=== PATIENT | female | born 1995 | race Caucasian/White ===

== ENCOUNTER 2016-12-10 12:47 | Observation (INO) | payer BC ==
[2016-12-10] VITALS (8 sets, daily range): BP systolic 91–101; BP diastolic 43–60
[~2016-12-10] VITALS: Ht 170.2 cm; Wt 57.6 kg
--- NOTE | 2016-12-10 13:23 | Emergency Room Report ---
History of Present Illness General Chief Complaint: Abdominal Pain Source: Patient Present Illness HPI The patient is a 21-year-old female with a history of ovarian cysts presenting for mid to lower abdominal and right lower quadrant pain which began yesterday. The patient states that she was experiencing a 10 out of 10 sharp pain to those areas which has decreased today. Pain is now described as a 5/10 dull ache. The pain is worse with touch. The patient has also admitted to a subjective low grade fever for the past week. 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 The patient was then told to present to the emergency department for further evaluation. The patient denies any other symptoms including nausea, vomiting, chills, diarrhea, constipation, dysuria, vaginal discharge Allergies: Coded Allergies: LIDOCAINE (Verified Allergy, Unknown, 12/10/16) Patient History Past Medical History: see triage record Pertinent Family History: none Last Menstrual Period: 12/04/16 Now: No - states she is on control Reviewed Nursing Documentation: PMH: Agreed, PSxH: Agreed Nursing Documentation-PMH Past Medical History: No History, Except For Review of Systems All Other Systems: negative except mentioned in HPI Physical Exam Vital Signs Date Time Temp Pulse Resp B/P Pulse Ox O2 Delivery O2 Flow Rate FiO2 12/10/16 12:53 99.1 102 16 108/65 99 Room Air Sp02 EP Interpretation: reviewed, normal General Appearance: no apparent distress, alert, GCS 15, non-toxic Head: normocephalic, atraumatic Respiratory: chest non-tender, lungs clear, normal breath sounds, speaking full sentences Cardiovascular #1: regular rate, rhythm, no edema Gastrointestinal: normal inspection, normal bowel sounds, no mass, non- distended, no guarding, no hernia, tenderness - Suprapubic and RLQ Genitourinary: normal inspection, no CVA tenderness Musculoskeletal: back normal, gait/station normal, normal range of motion, non- tender Neurologic: alert, oriented x3, responsive, motor strength/tone normal, sensory intact, speech normal Psychiatric: judgement/insight normal, memory normal, mood/affect normal, no suicidal/homicidal ideation Skin: normal color, no rash, warm/dry, well hydrated Medical Decision Making PA Attestation Dr. Sanchez is my supervising physician. Patient management was discussed with my supervising physician Diagnostic Impression: Primary Impression: Acute appendicitis ER Course The patient is a 21-year-old female presenting with lower abdominal pain and low -grade fever Differential diagnoses considered include but not limited to appendicitis, , UTI, PID Physical exam: Vitals are within normal limits. No apparent distress Abdomen is soft. Normal bowel sounds. No distention. There is tenderness to palpation over the suprapubic region and right lower quadrant. Otherwise exam is unremarkable CBC and CMP unremarkable. No leukocytosis. Urinalysis is consistent with UTI CT of the abdomen and pelvis shows findings consistent with appendicitis Dr. Flores was consulted in the emergency department and case discussed with SP. The patient will be admitted to Dr. Flores Presurgical labs are ordered. The patient is started on IV cefoxitin. Patient placed on n.p.o. The patient is informed of these results and will be admitted in stable condition Laboratory Tests Test 12/10/16 13:40 12/10/16 13:58 White Blood Count 10.0 K/UL (4.8-10.8) Red Blood Count 3.81 M/UL (4.20-5.40) L Hemoglobin 13.2 G/DL (12.0-16.0) Hematocrit 39.1 % (37.0-47.0) Mean Corpuscular Volume 103 FL (80-99) H Mean Corpuscular Hemoglobin 34.7 PG (27.0-31.0) H Mean Corpuscular Hemoglobin Concent 33.8 G/DL (32.0-36.0) Red Cell Distribution Width 12.3 % (11.6-14.8) Platelet Count 177 K/UL (150-450) Mean Platelet Volume 9.8 FL (6.5-10.1) Neutrophils (%) (Auto) 72.9 % (45.0-75.0) Lymphocytes (%) (Auto) 19.1 % (20.0-45.0) L Monocytes (%) (Auto) 7.6 % (1.0-10.0) Eosinophils (%) (Auto) 0.1 % (0.0-3.0) Basophils (%) (Auto) 0.4 % (0.0-2.0) Sodium Level 141 mEQ/L (135-145) Potassium Level 4.3 mEQ/L (3.4-4.9) Chloride Level 102 mEQ/L (98-107) Carbon Dioxide Level 23 mEQ/L (20-30) Anion Gap 16 (5-15) H Blood Urea Nitrogen 8 mg/dL (7-23) Creatinine 0.7 mg/dL (0.5-0.9) Estimate Glomerular Filtration Rate > 60 mL/min (>60) Glucose Level 97 mg/dL (74-106) Calcium Level 10.0 mg/dL (8.6-10.2) Total Bilirubin 0.4 mg/dL (0.0-1.2) Aspartate Amino Transferase (AST) 18 U/L (5-40) Alanine Aminotransferase (ALT) 11 U/L (3-33) Alkaline Phosphatase 66 U/L (35-104) Total Protein 7.2 g/dL (6.6-8.7) Albumin 4.6 g/dL (3.5-5.2) Globulin 2.6 g/dL Albumin/Globulin Ratio 1.7 (1.0-2.7) Lipase 24 U/L (< 60) Urine Color Yellow Urine Appearance Slightly cloudy Urine pH 8 (4.5-8.0) Urine Specific [place] 1.010 (1.005-1.035) Urine Protein 1+ (NEGATIVE) H Urine Glucose (UA) Negative (NEGATIVE) Urine Ketones 2+ (NEGATIVE) H Urine Occult Blood 4+ (NEGATIVE) H Urine Nitrite Negative (NEGATIVE) Urine Bilirubin Negative (NEGATIVE) Urine Urobilinogen Normal MG/DL (0.0-1.0) Urine Leukocyte Esterase 3+ (NEGATIVE) H Urine RBC 2-4 /HPF (0 - 2) H Urine WBC 10-15 /HPF (0 - 2) H Urine Squamous Epithelial Cells Few /LPF (NONE/OCC) Urine Bacteria Moderate /HPF (NONE) H Urine HCG, Qualitative Negative Lab Results Impression CBC and CMP unremarkable. No leukocytosis. Urinalysis is consistent with UTI CT/MRI/US Diagnostic Results CT/MRI/US Diagnostic Results : Imaging Test Ordered: CT abd/pelvis Impression Consistent with appendicitis Last Vital Signs Date Time Temp Pulse Resp B/P Pulse Ox O2 Delivery O2 Flow Rate FiO2 12/10/16 12:53 99.1 102 16 108/65 99 Room Air Status: improved Disposition: ADMITTED INPATIENT Condition: Stable MERVAT BENTLEY Dec 10, 2016 13:23
[2016-12-10 13:54] LABS: BASOPHILS % (AUTO) 0.4 % (0.0-2.0); EOSINOPHILS % (AUTO) 0.1 % (0.0-3.0); LYMPHOCYTES % (AUTO) 19.1 % (20.0-45.0); MEAN CORPUSCULAR HEMOGLOBIN 34.7 PG (27.0-31.0); MEAN CORPUSCULAR HGB CONC 33.8 G/DL (32.0-36.0); MEAN CORPUSCULAR VOLUME 103 FL (80-99); MEAN PLATELET VOLUME 9.8 FL (6.5-10.1); MONOCYTES % (AUTO) 7.6 % (1.0-10.0); NEUTROPHILS % (AUTO) 72.9 % (45.0-75.0); PLATELET COUNT 177 K/UL (150-450); RED BLOOD COUNT 3.81 M/UL (4.20-5.40); RED CELL DISTRIBUTION WIDTH 12.3 % (11.6-14.8)
[2016-12-10 14:21] LABS: ALANINE AMINOTRANSFERASE 11 U/L (3-33); ALBUMIN/GLOBULIN RATIO 1.7 (1.0-2.7); ANION GAP 16 (5-15); ASPARTATE AMINO TRANSFERASE 18 U/L (5-40); CARBON DIOXIDE 23 mEQ/L (20-30); CHLORIDE 102 mEQ/L (98-107); CREATININE 0.7 mg/dL (0.5-0.9); GLOMERULAR FILTRATION RATE > 60 mL/min (>60); HEMOLYSIS 5; LIPASE 24 U/L (< 60); POTASSIUM 4.3 mEQ/L (3.4-4.9); SODIUM 141 mEQ/L (135-145); TOTAL PROTEIN 7.2 g/dL (6.6-8.7)
[2016-12-10 14:38] LABS: APPEARANCE,URINE SLIGHTLY CLOUDY; KETONES,URINE 2+ (NEGATIVE); LEUKOCYTE ESTERASE ,URINE 3+ (NEGATIVE); NITRITE,URINE NEGATIVE (NEGATIVE); PH,URINE 8 (4.5-8.0); PROTEIN,URINE 1+ (NEGATIVE); UROBILINOGEN,URINE NORMAL MG/DL (0.0-1.0)
[2016-12-10 14:48] LABS: BACTERIA,URINE MODERATE /HPF; SQUAMOUS EPITHELIAL CELL,UR FEW /LPF (NONE/OCC)
[2016-12-10] MEDS ORDERED: cefOXitin Sod 1 GM in D5W 55 ML IVPB STA (16:21)
--- NOTE | 2016-12-10 16:25 | Diagnostic Imaging Report ---
Clinical Indication: Abdominal distention, lower abdominal pain Technique: No oral contrast utilized, per emergency room physician request IV administration nonionic contrast. Venous phase spiral acquisition obtained through the abdomen and pelvis. Multiplanar reconstructions were generated. Total dose length product 648 mGycm. CTDIvol(s) 13 mGy Comparison: Findings: The appendix is enlarged, measures 10 mm in diameter there is very slight increased attenuation of the adjacent periappendiceal fat. No abnormal fluid collections are evident. No extraluminal gas is evident. Distal esophagus, stomach, duodenum are unremarkable. No small bowel distention or small bowel wall thickening. No evidence of diverticulosis or diverticulitis. There is a small amount of free pelvic fluid present. No retroperitoneal or mesenteric mass or adenopathy. No pelvic mass or adenopathy. The liver, gallbladder, bile ducts, pancreas, spleen, adrenals, kidneys are unremarkable. The included lung bases are clear. The bones are unremarkable. Impression: Positive for uncomplicated acute appendicitis Small amount free pelvic fluid, possibly related to the above but more likely physiologic The CT scanner at [facility] is accredited by the [employer] and the scans are performed using protocols designed to limit radiation exposure to as low as reasonably achievable to attain images of sufficient resolution adequate for diagnostic evaluation.
[2016-12-10] MEDS ORDERED: cefOXitin 1gm Inj ONE (16:44)
--- NOTE | 2016-12-10 19:59 | Consultation ---
History of Present Illness General Date patient seen: Dec 10, 2016 Chief Complaint: Abdominal Pain Reason for Consultation: acute appendicitis Present Illness HPI 21 F presents to ED complaining of lower abdominal pain x 1-2 days. As per patient, she has been feeling unwell for a few days now with a low grade fever but two nights ago began to note some lower abdominal pain. Last night pain became significantly worse so she went to see her OB this afternoon. Has history of ruptured ovarian cysts but states that she felt as if this episode might be different as the pain was not consistent to prior episodes. Pain described as cramping lower abdominal pain that was infraumbilical at first but now an be in right or left lower quadrant. when seen in her OB's office pain was mostly noted to be RLQ. Patient denies associated nausea or emesis. CT A/ P obtained in ED demonstrated enlarged appendix 10-11mm with thickened wall and free abdominal fluid consistent with early acute appendicitis. Surgery called to evaluate. Allergies: Coded Allergies: LIDOCAINE (Verified Allergy, Unknown, 12/10/16) Patient History History Provided By: Patient Healthcare decision maker Resuscitation status Advanced Directive on File Past Medical/Surgical History Past Medical/Surgical History: (1) Acute appendicitis (2) Ovarian cyst Review of Systems Constitutional: Denies: chills, fever, malaise, no symptoms, other, see HPI, sweats, weakness Eye: Denies: acuity changes, blurred vision, discharge, double vision, eye pain , no symptoms, nose congestion, nose pain, other, see HPI, tearing ENT: Denies: ear discharge, ear pain, hearing loss, mouth pain, nasal discharge , no symptoms, nose congestion, nose pain, other, see HPI, throat pain, throat swelling Respiratory: Denies: LIAO, cough, no symptoms, orthopnea, other, see HPI, shortness of breath, sputum, stridor, wheezing Cardiovascular: Denies: PND, chest pain, edema, no symptoms, other, palpitations, see HPI, syncope Gastrointestinal: Reports: abdominal pain Genitourinary: Denies: discharge, dysuria, frequency, hematuria, incontinence, no symptoms, other, pain, retention, see HPI, urgency, vag bleed/dc Musculoskeletal: Denies: back pain, gout, joint pain, joint swelling, muscle pain, muscle stiffness, no symptoms, other, see HPI Skin: Denies: change in color, change in hair/nails, dryness, lesions, no symptoms, other, rash, see HPI Psychiatric: Denies: HI, SI, anxiety, depressed feelings, emotional problems, hallucinations, no symptoms, other, prior hx, see HPI Neurological: Denies: dizziness, focal weakness, headache, no symptoms, numbness, other, paresthesia, see HPI, seizure, syncope, tingling, tremors Endocrine: Denies: excessive sweating, flushing, increased thirst, increased urine, intolerance to temperature, no symptoms, other, see HPI, unexplained weight loss Hematologic/Lymphatic: Denies: anemia, blood clots, diathesis, easy bleeding, easy bruising, no symptoms, other, see HPI, swollen glands All Other Systems: negative except mentioned in HPI Physical Exam General Appearance: WD/WN, no apparent distress, alert Lines, tubes and drains: peripheral HEENT: normocephalic, atraumatic Neck: non-tender, supple Respiratory/Chest: normal breath sounds, no respiratory distress, no accessory muscle use Cardiovascular/Chest: normal peripheral pulses, normal rate, regular rhythm Abdomen: normal bowel sounds, soft, other - tender in infraumbilcal area, RLQ, and LLQ. guarding with RLQ palpation. rebound noted. 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 normal, no motor/sensory deficits Last 24 Hour Vital Signs Date Time Temp Pulse Resp B/P Pulse Ox O2 Delivery O2 Flow Rate FiO2 12/10/16 15:24 98.5 85 16 100/54 100 Room Air 12/10/16 14:42 98.5 12/10/16 12:53 99.1 102 16 108/65 99 Room Air Laboratory Tests Test 12/10/16 13:40 12/10/16 13:58 White Blood Count 10.0 K/UL (4.8-10.8) Red Blood Count 3.81 M/UL (4.20-5.40) L Hemoglobin 13.2 G/DL (12.0-16.0) Hematocrit 39.1 % (37.0-47.0) Mean Corpuscular Volume 103 FL (80-99) H Mean Corpuscular Hemoglobin 34.7 PG (27.0-31.0) H Mean Corpuscular Hemoglobin Concent 33.8 G/DL (32.0-36.0) Red Cell Distribution Width 12.3 % (11.6-14.8) Platelet Count 177 K/UL (150-450) Mean Platelet Volume 9.8 FL (6.5-10.1) Neutrophils (%) (Auto) 72.9 % (45.0-75.0) Lymphocytes (%) (Auto) 19.1 % (20.0-45.0) L Monocytes (%) (Auto) 7.6 % (1.0-10.0) Eosinophils (%) (Auto) 0.1 % (0.0-3.0) Basophils (%) (Auto) 0.4 % (0.0-2.0) Sodium Level 141 mEQ/L (135-145) Potassium Level 4.3 mEQ/L (3.4-4.9) Chloride Level 102 mEQ/L (98-107) Carbon Dioxide Level 23 mEQ/L (20-30) Anion Gap 16 (5-15) H Blood Urea Nitrogen 8 mg/dL (7-23) Creatinine 0.7 mg/dL (0.5-0.9) Estimat Glomerular Filtration Rate > 60 mL/min (>60) Glucose Level 97 mg/dL (74-106) Calcium Level 10.0 mg/dL (8.6-10.2) Total Bilirubin 0.4 mg/dL (0.0-1.2) Aspartate Amino Transf (AST/SGOT) 18 U/L (5-40) Alanine Aminotransferase (ALT/SGPT) 11 U/L (3-33) Alkaline Phosphatase 66 U/L (35-104) Total Protein 7.2 g/dL (6.6-8.7) Albumin 4.6 g/dL (3.5-5.2) Globulin 2.6 g/dL Albumin/Globulin Ratio 1.7 (1.0-2.7) Lipase 24 U/L (< 60) Urine Color Yellow Urine Appearance Slightly cloudy Urine pH 8 (4.5-8.0) Urine Specific [place] 1.010 (1.005-1.035) Urine Protein 1+ (NEGATIVE) H Urine Glucose (UA) Negative (NEGATIVE) Urine Ketones 2+ (NEGATIVE) H Urine Occult Blood 4+ (NEGATIVE) H Urine Nitrite Negative (NEGATIVE) Urine Bilirubin Negative (NEGATIVE) Urine Urobilinogen Normal MG/DL (0.0-1.0) Urine Leukocyte Esterase 3+ (NEGATIVE) H Urine RBC 2-4 /HPF (0 - 2) H Urine WBC 10-15 /HPF (0 - 2) H Urine Squamous Epithelial Cells Few /LPF (NONE/OCC) Urine Bacteria Moderate /HPF (NONE) H Urine HCG, Qualitative Negative Height (Feet): 5 Height (Inches): 7.00 Weight (Pounds): 127 Assessment/Plan Problem List: (1) Acute appendicitis ICD Codes: K35.80 - Unspecified acute appendicitis SNOMED: [id number] Status: stable Assessment/Plan 21 F with acute appendicitis. Low grade fever of 99.1, normal wbc, exam with lower abdominal pain and mild guarding. CT Scan reviewed with radiologist and consistent with early acute appendicitis. I explained the above findings to the patient. I explained that it seems to be early acute appendicitis but cannot be certain given atypical exam and normal wbc. Given appearance of appendix on CT with thickened wall, diameter of 10-11mm and free fluid it is likely she has early acute appendicitis. Offered to monitor without abx to see if she improves or declares herself or to proceed with diagnostic laparoscopy and appendectomy. After explaining the risks, benefits, and alternatives in detail with the patient, she expressed desire to proceed with surgery. NPO IV fluids IV Abx To OR tonight for lap vs open appendectomy. consent in chart Nima Morales Dec 10, 2016 19:59
--- NOTE | 2016-12-10 21:00 | Anethesia Preoperative Eval ---
Anesthesia Pre-op PMH/ROS General Date of Evaluation: Dec 10, 2016 Anesthesiologist: Yogi ASA Score: ASA 2 Mallampati Score Class I : Soft palate, uvula, fauces, pillars visible Class II: Soft palate, uvula, fauces visible Class III: Soft palate, base of uvula visible Class IV: Only hard plate visible Mallampati Classification: Class I Surgeon: Liz Diagnosis: Acute appendicitis Surgical Procedure: Laparoscopic appendectomy Anesthesia History: none Family History: no anesthesia problems Allergies: Coded Allergies: LIDOCAINE (Verified Allergy, Unknown, 12/10/16) Medications: see eMAR Past Medical History Cardiovascular: Denies: CAD, HTN, RI, arrhythmia, other, valve dz Pulmonary: Denies: COPD, HIEU, asthma, other Gastrointestinal/Genitourinary: Reports: other - ovarian cysts, Denies: CRI, ESRD, GERD Neurologic/Psychiatric: Denies: CVA, TIA, dementia, depression/anxiety, other Endocrine: Denies: DM, hypothyroidism, other, steroids HEENT: Denies: LOWER ELWHA (L), LOWER ELWHA (R), cataract (L), cataract (R), glaucoma, other Hematology/Immune: Denies: DVT, anemia, bleeding disorder, other Musculoskeletal/Integumentary: Denies: DDD, DJD, OA, RA, edema, other PSxH Narrative: T&A Anesthesia Pre-op Phys. Exam Physician Exam Last Vital Signs Date Time Temp Pulse Resp B/P Pulse Ox O2 Delivery O2 Flow Rate FiO2 12/10/16 15:24 98.5 85 16 100/54 100 Room Air Constitutional: NAD Cardiovascular: RRR Respiratory: CTA Airway Exam Mallampati Score: Class I MO: full ROM: full Teeth: intact Anesthesia Pre-op A/P Labs Hematology Test 12/10/16 13:40 White Blood Count 10.0 K/UL (4.8-10.8) Red Blood Count 3.81 M/UL (4.20-5.40) L Hemoglobin 13.2 G/DL (12.0-16.0) Hematocrit 39.1 % (37.0-47.0) Mean Corpuscular Volume 103 FL (80-99) H Mean Corpuscular Hemoglobin 34.7 PG (27.0-31.0) H Mean Corpuscular Hemoglobin Concent 33.8 G/DL (32.0-36.0) Red Cell Distribution Width 12.3 % (11.6-14.8) Platelet Count 177 K/UL (150-450) Mean Platelet Volume 9.8 FL (6.5-10.1) Neutrophils (%) (Auto) 72.9 % (45.0-75.0) Lymphocytes (%) (Auto) 19.1 % (20.0-45.0) L Monocytes (%) (Auto) 7.6 % (1.0-10.0) Eosinophils (%) (Auto) 0.1 % (0.0-3.0) Basophils (%) (Auto) 0.4 % (0.0-2.0) Chemistry Test 12/10/16 13:40 Sodium Level 141 mEQ/L (135-145) Potassium Level 4.3 mEQ/L (3.4-4.9) Chloride Level 102 mEQ/L (98-107) Carbon Dioxide Level 23 mEQ/L (20-30) Anion Gap 16 (5-15) H Blood Urea Nitrogen 8 mg/dL (7-23) Creatinine 0.7 mg/dL (0.5-0.9) Estimat Glomerular Filtration Rate > 60 mL/min (>60) Glucose Level 97 mg/dL (74-106) Calcium Level 10.0 mg/dL (8.6-10.2) Total Bilirubin 0.4 mg/dL (0.0-1.2) Aspartate Amino Transf (AST/SGOT) 18 U/L (5-40) Alanine Aminotransferase (ALT/SGPT) 11 U/L (3-33) Alkaline Phosphatase 66 U/L (35-104) Total Protein 7.2 g/dL (6.6-8.7) Albumin 4.6 g/dL (3.5-5.2) Globulin 2.6 g/dL Albumin/Globulin Ratio 1.7 (1.0-2.7) Lipase 24 U/L (< 60) Urine Test Test 12/10/16 13:58 Urine HCG, Qualitative Negative Risk Assessment & Plan Assessment: ASA IIE Plan: GA Status Change Before Surgery: No Pre-Antibiotics Drug: Ancef 2g Given Within 1 Hr of Incision: Yes Time Given: 21:55 AFRICA GARCIA M.D. Dec 10, 2016 21:00
[2016-12-10] MEDS ORDERED: Bupivacaine w/Epi 0.25% 30ml Vial INJ ONE ×2 (21:28→22:39)
[2016-12-10] MEDS ORDERED: Bupivacaine 0.25% Inj 30ml INJ ONE (21:28)
[2016-12-10] MEDS ORDERED: Ketorolac 30mg Inj ONE (21:30)
[2016-12-10] MEDS ORDERED: Midazolam 2mg/2ml Inj ONE (21:30)
[2016-12-10] MEDS ORDERED: Propofol 10mg/ml 20ml IV ONE (21:30)
[2016-12-10] MEDS ORDERED: NS Irrig 1000ml ONE (21:30)
[2016-12-10] MEDS ORDERED: fentaNYL 100 mcg/2 mL IV ONE (21:30)
[2016-12-10] MEDS ORDERED: LR 1000ml ONE (21:30)
[2016-12-10] MEDS ORDERED: Metoclopramide 10mg/2ml Inj ONE (21:30)
[2016-12-10] MEDS ORDERED: Sterile Water Irrig 1000ml IRRIG ONE (21:30)
[2016-12-10] MEDS ORDERED: Dexamethasone 4mg/ml vial ONE (21:30)
[2016-12-10] MEDS ORDERED: Zemuron 50mg/5ml Inj IV ONE (21:30)
--- NOTE | 2016-12-10 21:55 | Pre-Procedure Note/Attestation ---
Pre-Procedure Note/Attestation Complete Prior to Procedure Procedure Narrative: laparoscopic appendectomy; possible open Indications for Procedure Pre-Operative Diagnosis: acute appendicitis Attestation I attest that I discussed the nature of the procedure; its benefits; risks and complications; and alternatives (and the risks and benefits of such alternatives ), prior to the procedure, with the patient (or the patient's legal inbound call center representative). I attest that, if there was a reasonable possibility of needing a blood transfusion, the patient (or the patient's legal inbound call center representative) was given the [facility] standardized written summary, pursuant to the Arturo Sylvie Blood Safety Act ([place] Health and Safety Code # 1645, as amended). I attest that I re-evaluated the patient just prior to the surgery and that there has been no change in the patient's H&P, except as documented below: Nima Morales Dec 10, 2016 21:55
[2016-12-10] MEDS ORDERED: LR 1000ml 1,000 ML IVLG SCH (22:10)
[2016-12-10] MEDS ORDERED: Midazolam 2mg/2ml Inj IVP PRN (22:15)
[2016-12-10] MEDS ORDERED: DiphenhydrAMINE 50mg/ml Inj IVP PRN ×2 (22:15→23:15)
[2016-12-10] MEDS ORDERED: fentaNYL 100 mcg/2 mL IV PRN (22:15)
[2016-12-10] MEDS ORDERED: Labetalol 5mg/ml 20ml vial IV PRN (22:15)
[2016-12-10] MEDS ORDERED: Metoclopramide 10mg/2ml Inj IVP PRN (22:15)
[2016-12-10] MEDS ORDERED: Hydromorphone 0.5mg/0.5ml inj IVP PRN ×2 (22:15→23:15)
[2016-12-10] MEDS ORDERED: Ketorolac 30mg Inj IV PRN (22:15)
[2016-12-10] MEDS ORDERED: LORazepam Inj 2mg/ml 1ml IV PRN (22:15)
--- NOTE | 2016-12-10 22:33 | Immediate Post-Op Evaluation ---
Immediate Post-Op Evalulation Immediate Post-Op Evalulation Procedure: Laparoscopic appendectomy Date of Evaluation: Dec 10, 2016 Time of Evaluation: 23:06 IV Fluids: 1L Blood Products: 0 Estimated Blood Loss: min Urinary Output: 0 Blood Pressure Systolic: 91 Blood Pressure Diastolic: 45 Pulse Rate: 89 Respiratory Rate: 13 O2 Sat by Pulse Oximetry: 98 Temperature (Fahrenheit): 98.9 Pain Score (1-10): 0 Nausea: No Vomiting: No Complications 0 Patient Status: awake, reacts, patent, none Hydration Status: adequate Drug: Ancef 1g Given Within 1 Hr of Incision: Yes Time Given: 21:55 AFRICA GARCIA M.D. Dec 10, 2016 22:33
[2016-12-10] MEDS ORDERED: NS Irrig 1000ml IRRIG ONE (22:40)
--- NOTE | 2016-12-10 23:00 | Brief Operative Note ---
Immediate Post Operative Note Operative Note Pre-op Diagnosis: acute appendicitis Procedure: Laparoscopic appendectomy Post-op Diagnosis: same as pre-op Findings: consistent w/pre-op dx studies Surgeon: Carmen Computer Publisher: Jose Anesthesiologist: Yogi Anesthesia: general Specimen: yes Complications: none Condition: stable Fluids: 1000cc crystolloid Estimated Blood Loss: minimal Drains: none Implant(s) used?: No Nima Morales Dec 10, 2016 23:00
[2016-12-10] MEDS ORDERED: Norco 5mg/325mg tab ORAL PRN (23:15)
[2016-12-10] MEDS ORDERED: Norco 10mg/325mg tab ORAL PRN (23:15)
[2016-12-10] MEDS ORDERED: Milk of Magnesia 30ml Ud ORAL PRN (23:15)
[2016-12-11] VITALS: BP 108/85
[2016-12-11] MEDS: HYDROmorphone 1mg/ml Carpuject IVP PRN ×2 (00:30→04:02)
[2016-12-11 04:00] VITALS: BP 120/63
[2016-12-11] MEDS ORDERED: ceFAZolin sod 2 GM in D5W 110 ML IV SCH (06:00)
--- NOTE | 2016-12-11 07:38 | General Progress Note ---
Progress Note Progress Note Doing well, shakira liquids, slight pain. Abdomen: sof, BS normal Wounds clean, no bleeding Home today, office next Tue Dr. Morales. EDUARDO VIVAR Dec 11, 2016 07:38
[2016-12-11 08:15] VITALS: BP 110/72
[2016-12-11] MEDS ORDERED: ACETAMINOPHEN-1 EAC1 ORAL ×2 (10:31→10:32)
[2016-12-11 15:59] VITALS: BP 120/63
--- NOTE | 2016-12-11 15:59 | 48 Hour Post Anesthesia Eval ---
Post Anesthesia Evaluation Procedure: Laparoscopic appendectomy Date of Evaluation: Dec 11, 2016 Time of Evaluation: 07:00 Blood Pressure Systolic: 120 0: 63 Pulse Rate: 87 Respiratory Rate: 18 Temperature (Fahrenheit): 97.7 O2 Sat by Pulse Oximetry: 100 Airway: patent Nausea: No Vomiting: No Pain Intensity: 1 Hydration Status: adequate Cardiopulmonary Status: at baseline Mental Status/LOC: patient returned to baseline Post-Anesthesia Complications: 0 Follow-up care needed: ready to discharge AFRICA GARCIA M.D. Dec 11, 2016 15:59
--- NOTE | 2016-12-12 05:27 | Operative Note - Dictated ---
DATE OF OPERATION: 12/10/2016 PREOPERATIVE DIAGNOSIS: Acute appendicitis. POSTOPERATIVE DIAGNOSIS: Acute appendicitis, nonperforated. OPERATION PERFORMED: Laparoscopic appendectomy. ATTENDING SURGEON: Nima Morales M.D. SHEET METAL HELPER SURGEON: Cholo Garcia M.D. ANESTHESIOLOGIST: Jose Cullen M.D. ANESTHESIA: General TRANSPORT TANK TECHNICIAN. SPECIMENS: Appendix sent to pathology for review. COMPLICATIONS: None. ANTIBIOTICS: Given one hour prior to cut time. CONDITION: Stable. WOUND CLASSIFICATION: Class I. IV FLUIDS: 1 L crystalloid. ESTIMATED BLOOD LOSS: Minimal. DRAINS: None. COMPLICATIONS: None. OPERATIVE FINDINGS: 1. Early acute appendicitis identified with dilated and injected appendix. 2. Free fluid in the pelvis. 3. Satisfactory laparoscopic appendectomy completed. INDICATIONS FOR PROCEDURE: This is a 21-year-old female, who was referred to the emergency department at [facility] for evaluation of abdominal pain for over two days. The patient states that she has been feeling not well for a few days with some low-grade fevers, but in the past 48 hours, she has developed worsening abdominal pain. 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 The patient was seen and noted to have free fluid on ultrasound, but did complain of lower abdominal pain, which was mainly in her upper quadrant during her visit. She was then referred to emergency department for further evaluation. CT scan was performed and was consistent with early acute appendicitis, nonperforated. Surgery was called for consultation, at which time the patient was seen and evaluated. Please refer to consult note for details. Appendectomy was indicated. The risks, benefits, and alternatives were discussed with the patient in detail prior to entering the operating room. The patient expressed understanding and consented to surgery. OPERATIVE NOTE: The patient was taken to the operating room and placed on the operating table in the supine position with bilateral arms up. All bony prominence were padded with gel pads. SCDs were placed. Preoperative antibiotics were given one hour prior to cut time. Appropriate time-out was taken to identify the patient, procedure, operating staff, and surgical staff. The patient voided just prior to entering the operating room, so no Parisi catheter was necessary. General anesthesia was induced and the patient was intubated. The abdomen was then prepped and draped in standard surgical fashion. An incision was made through the umbilicus using a fresh #11 blade. This was carried down to the fascia. The fascia was elevated and incised. Entering the abdomen was made under direct visualization. A 12 mm trocar was then placed under direct visualization in Mahnaz abdominal entry technique. The abdomen was then insufflated 12 to 15 mmHg. The patient tolerated the insufflation well. The laparoscope was then inserted and the abdomen was inspected. No injury from this trocar placement was noted. Examined the abdomen where it looked very healthy with sharp edges and no abnormalities. The gallbladder was otherwise normal. The stomach and the point of spleen that could be seen were otherwise normal. The omentum and mainly the small bowels were easily visualized and was normal. The sigmoid and part of the ascending colon that could be identified were normal. There was some free serous fluid in the pelvis. The appendix was then identified easily in the right lower quadrant. The patient was placed in the Trendelenburg position with left side down. The base of the appendix was grabbed and elevated. The cecum and antrum looked otherwise normal. The appendix appeared dilated and injected. A window was made through the mesoappendix at the base of the appendix. A laparoscopic linear stapler was then entered into the abdomen and the appendix was ligated at its base. Once this was completed, the appendix was elevated and using a laparoscopic linear stapler in similar fashion, the mesoappendix was ligated and divided. The appendix was then placed in a laparoscopic endoscopic retrieval bag and removed from the abdomen without complication. The appendiceal stump and mesoappendix were then evaluated and appropriate hemostasis was achieved and staple lines looked well placed. The free fluid in the pelvis was then suctioned out. The uterus and both right and left ovaries were evaluated and otherwise normal as well. Secondary trocars, which were placed in the left lower quadrant and suprapubic area, were inserted under direct visualization and removed under direct visualization. No complications from initial placement or removal of secondary trocars was identified. Good hemostasis was noted throughout the procedure. The abdomen was then allowed to desufflate. The 12 mm umbilical trocar site fascia was closed using a oozyqt-ef-laemw #0 Vicryl suture. The remaining skin incisions were then closed using 4-0 Monocryl subcuticular sutures. The wounds were then washed and skin glue was applied. The patient tolerated the procedure well and was extubated and taken to postanesthesia care unit in stable condition. Nima Morales M.D. DR: JASON JOB#: [id number] CC:
--- NOTE | 2017-02-18 08:53 | Discharge Summary ---
Discharge Summary Hospital Course Date of Admission Dec 10, 2016 at 16:43 Date of Discharge Dec 11, 2016 at 12:00 Admitting Diagnosis abdominal pain , possible early appendicitis Reason for Hospitalization: abdominal pain, possible early appendicitis ELIZABETH Guaman is a 21 year old female who was admitted on Dec 10, 2016 at 16 :43 for abdominal pain Patient presented to ED complaining of lower abdominal pain x 1-2 days. She reported low grade fever and two nights ago began to note lower abdominal pain. Pain became significantly worse and she went to see HOPPER FEEDER doctor prior to coming to ED. When seen in her OB's office pain was mostly noted to be RLQ. Patient with history of ruptured ovarian cyst, however reported pain was not consistent with prior episodes. Pain described as cramping lower abdominal pain , initially intraumbilical but then moved to right or left lower quadrant. Patient denied associated nausea or emesis. CT A/P obtained in ED demonstrated enlarged appendix 10-11mm with thickened wall and free abdominal fluid consistent with early acute appendicitis. Surgery evaluated the patient in ED Patient with low grade fever, no leukocytosis, mild guarding on exam, signs of early appendicitis on CT Patient was explained options by surgeon: await with conservative treatment versus proceed with surgery After explaining the risks, benefits, and alternatives in detail with the patient, she expressed desire to proceed with surgery. Procedures 12/10 - Laparoscopic appendectomy dr Morales, dr Garcia Hospital Course patient admitted CT A/P -Positive for uncomplicated acute appendicitis opted for surgery, after explaining options by surgeon NPO iVF IV abx pain management s/p laparoscopic appendectomy 12/10 with findings of acute nonperforated appendicitis pain management - pain controlled Abdomen: soft, BS normal Wounds clean, no bleeding IS at bedside ambulated diet slowly advanced, able to tolerate voided freely stable for discharge home scripts for analgesics provided fup with surgeon next week as advised FINAL DIAGNOSES: Acute appendicitis, nonperforated. S/P Laparoscopic appendectomy postoperative pain hx of ruptured ovarian cyst . Discharge Medications Continued Medications: Acetaminophen With Codeine (T#3) (Tylenol #3 Tab*) Y Tab 1 TAB ORAL Q4H PRN for For Pain, TAB Discharge Condition Upon Discharge: stable Discharge Disposition Patient was discharged to Home (01) Discharge Diagnoses: Discharge Instructions Discharge Instructions Special Instructions I have been assigned to complete a D/C Summary on this account. I was not involved in the patient management Femi [facility]Lilliam NP Feb 18, 2017 08:53
== END 2016-12-11 12:00 | disposition home or self-care (01) ==
LOC: EEVIPCON 13:50 → EMR 13:50 → INTOOBSV 16:43 → 4E 16:43 → EDBEDREQ 16:51 → 4E 22:47
DX: K35.80 Unspecified acute appendicitis (principal); N39.0 Urinary tract infection, site not specified; Z88.4 Allergy status to anesthetic agent; Z87.42 Personal history of other diseases of the female genital tract
CPT/HCPCS: 36415; 44970; 74177; 80053; 81003; 81025; 83690; 85025; 86850; 86900; 86901; 87086; 99285; G0378; J0690; J0694; J1100; J1170; J1200; J1885; J2250; J2405; J2704; J2765; J3010; J3490; J7120; Q9967; 94003; 94150; 96365; 96374; 96376